=== PATIENT | male | born 1990 | race Two or more races ===

== ENCOUNTER 2021-06-02 12:03 | Outpatient (REF) | payer SELFPAY ==
[2021-06-02 13:47] LABS: Binax Internal Control QC Valid; Binax Lot number: 9864; Binax Now Covid-19 Ag Positive (Negative)
== END 2021-06-02 12:04 | disposition home or self-care (01) ==
LOC: HO.LAB 12:03
PROVIDERS: Visit Provider Internal Medicine
DX: Z20.822 Contact with and (suspected) exposure to COVID-19 (principal)
CPT/HCPCS: 36415; C9803